=== PATIENT | female | born 1940 | race Caucasian/White ===

== ENCOUNTER 2016-11-05 16:12 | Emergency (ER) | payer MEDICARE, OTHER ==
[2016-11-05 16:59] VITALS: BP 153/85
[2016-11-05] MEDS ORDERED: Acetaminophen TAB* 325 MG PO ONE (17:59)
--- NOTE | 2016-11-05 18:01 | RAD ---
INDICATION: Intracranial injury. Headaches. On warfarin. COMPARISON: CT brain February 11, 2014 TECHNIQUE: Noncontrast axial source images were acquired from the skull base to the vertex. FINDINGS: Ventricles/sulci: There is cortical atrophy with compensatory dilatation of the CSF spaces. Brain parenchyma: There is periventricular and subcortical white matter change compatible with chronic ischemia. Intracranial hemorrhage:None. Extra-axial spaces: There are no abnormal extra axial fluid collections or evidence of extra-axial mass. Calvarium: There is no calvarial fracture or other calvarial abnormality. Scalp: There is no evidence of scalp or extracalvarial soft tissue abnormality. Paranasal sinuses/mastoid: The paranasal sinuses and mastoid air cells are clear. Other: None. IMPRESSION: NO ACUTE INTRACRANIAL FINDINGS
--- NOTE | 2016-11-05 19:58 | UC ---
marcie Bower Timothy, scribed for Letitia Ross MD on 11/05/16 at 1721 . Head Injury HPI - HPI Summary HPI Summary: Aida Durham is a 76 yo female presenting to [facility] with 4/10 frontal DAVID for the past 2 weeks S/P a fall with trauma to the right side of her head on 10/18/16. She denies N/V, blurred vision, as well as any other Sx. she has self-medicated with tylenol, most recently last night before bed. She has a Hx of osteopenia, HTN and Afib, and is on warfarin. Pt last had her INR done today at [facility] [place], and I am able to see in the labs that it is 3.1 - History Of Current Complaint Chief Complaint: UCHeadInjury Stated Complaint: HEAD PAIN Time Seen by Provider: 11/05/16 17:36 Hx Obtained From: Patient Mechanism Of Injury: fall Onset/Duration: Sudden Onset, Lasting Weeks, Still Present Severity Currently: Moderate Severity Initially: Moderate Pain Intensity: 4 Pain Scale Used: 0-10 Numeric Character: Other - ache Aggravating Factor(s): Nothing Alleviating Factor(s): Nothing Associated Signs And Symptoms: Positive: Negative. Negative: LOC (Time In Secs. /Mins/Hrs), LOC Duration Unknown Anticoagulant Therapy: Coumadin - Risk Factors SDH Risk Factor: Anticoagulent Use - Allergies/Home Medications Allergies/Adverse Reactions: Allergies Allergy/AdvReac Type Severity Reaction Status Date / Time Sulfa Antibiotics Allergy Intermediate Unknown Verified 11/05/16 16:59 Reaction Details Home Medications: Home Medications Diltiazem CD CAP* [Cardizem CD CAP*] 120 mg PO DAILY 11/05/16 [History Confirmed 11/05/16] Warfarin TAB(*) [Coumadin TAB(*)] 5 mg PO DAILY 11/05/16 [History Confirmed ] PMH/Surg Hx/FS Hx/Imm Hx Cardiovascular History Of: Reports: Hypertension, Atrial Fibrillation Denies: Congestive Heart Failure - Surgical History Surgical History: Yes Surgery Procedure, Year, and Place: TUBAL LIGATION 1981. LEFT ELBOW SURGERY 1995. CATARACT 2007 - Family History Known Family History: Positive: Other - breast cancer, no FHx of bleeds or strokes - Social History Occupation: Retired Lives: Alone - daughter and family [address] Alcohol Use: None Substance Use Type: None Smoking Status (MU): Never Smoked Tobacco - Immunization History Most Recent Influenza Vaccination: unsure Most Recent Tetanus Shot: within 2-3 years Most Recent Pneumonia Vaccination: never Review of Systems Constitutional: Negative Skin: Bruising - right side of head and ear and right lateral hip Eyes: Negative ENT: Negative Respiratory: Negative Cardiovascular: Negative Gastrointestinal: Negative Genitourinary: Negative Motor: Negative Neurovascular: Negative Musculoskeletal: Negative Neurological: Headache Psychological: Negative All Other Systems Reviewed And Are Negative: Yes Physical Exam Triage Information Reviewed: Yes Appearance: Well-Appearing, Well-Nourished, Pain Distress - mild Vital Signs: Initial Vital Signs Temp 98.6 F 11/05/16 16:54 Pulse 68 11/05/16 16:54 Resp 18 11/05/16 16:54 BP 153/85 11/05/16 16:54 Pulse Ox 99 11/05/16 16:54 Vital Signs Reviewed: Yes Eyes: Positive: Conjunctiva Clear. Negative: Discharge ENT: Positive: Hearing grossly normal, Pharynx normal, TMs normal - no hemotympanum, Other: - no hill's sign, superficial abrasion on the right lower ear lobe. Negative: Muffled/hoarse voice Neck: Positive: Supple, Nontender Respiratory: Positive: Lungs clear, Normal breath sounds, No respiratory distress, No accessory muscle use Cardiovascular: Positive: RRR, No Murmur, Pulses Normal, Brisk Capillary Refill Musculoskeletal: Positive: Strength Intact, ROM Intact Neurological: Positive: Alert, Muscle Tone Normal, Other: - A&O x3, CN II-XII intact, Motor function 5/5, Sensation intact, Gait WNL, EOMI, BILLIE Psychological Exam: Normal Skin: Positive: Other - ecchymosis on pinna of right ear, 17cm x 4cm swollen purple, yellow, and green ecchymosis on right hip Diagnostics - Radiology CT Brain Xray Interpretation: No Acute Changes - IMPRESSION: NO ACUTE INTRACRANIAL FINDINGS Radiology Interpretation Completed By: Radiologist Head Injury Course/Dx - Course Course Of Treatment: Aida Durham is a 76 yo female presenting to [facility] with 3/ 10 DAVID for the past 2 weeks S/P a fall in which she hit the right side of her head. After clinical examination and review of a CT of her brain revealing no acute findings, she will be discharged home with acute headache, with appropriate instructions. - Differential Dx/Diagnosis Differential Diagnosis/HQI/PQRI: Concussion Without LOC, Hematoma, Intracranial Bleed, Skull Fracture Provider Diagnoses: acute cephalgia s/p fall, on anticoagulants for afib Discharge - Discharge Plan Condition: Stable Disposition: HOME Patient Education Materials: General Headache (ED) Referrals: Cassandra Wallace MD [Primary Care Provider] - 2 Days Additional Instructions: Please follow up with your primary care physician regarding your visit to urgent care today. Return to urgent care or the emergency department with any new or recurring symptoms. The documentation as recorded by the marcie moody Timothy accurately reflects the service I personally performed and the decisions made by , Letitia Ross MD.
== END 2016-11-05 18:45 | disposition home or self-care (01) ==
LOC: UCEAST 16:12
DX: R51 Headache (principal); I48.91 Unspecified atrial fibrillation; Z79.01 Long term (current) use of anticoagulants; Z88.2 Allergy status to sulfonamides
CPT/HCPCS: 36415; 70450; 85610; 99211; A9270-GY; G0463